=== PATIENT | male | born 1965 | race Caucasian/White ===

== ENCOUNTER 2018-10-31 14:40 | Emergency (ER) | payer OTHER ==
[~2018-10-31] VITALS: Ht 172.7 cm; Wt 99.8 kg
[2018-10-31 15:02] VITALS: BP 125/56
== END 2018-10-31 16:36 | disposition home or self-care (01) ==
LOC: ER 14:47
DX: N39.0 Urinary tract infection, site not specified (principal); J45.909 Unspecified asthma, uncomplicated; I10 Essential (primary) hypertension; Z88.0 Allergy status to penicillin; Z88.2 Allergy status to sulfonamides
CPT/HCPCS: 74176; 81002; 81025

== ENCOUNTER 2020-05-28 14:46 | Emergency (ER) | payer MEDICARE, MEDICAID ==
[~2020-05-28] VITALS: Ht 172.7 cm; Wt 72.6 kg
[2020-05-28 15:23] LABS: Basophils # (auto) 0.1 10 ^3/uL (0-0.2); Basophils % (auto) 1.2 % (0.0-2.0); Eosinophils # (auto) 0.2 10 ^3/uL (0-0.8); Eosinophils % (auto) 3.3 % (0.0-7.0); Hematocrit 37.1 % (41.0-53.0); Lymphocytes # (auto) 2.1 10 ^3/uL (0.4-5.4); Lymphocytes % (auto) 36.7 % (10.0-50.0); Mean Corpuscular Hemoglobin 27.3 pg (28.0-32.0); Mean Corpuscular Hgb Conc. 32.4 g/dL (32.0-36.0); Mean Corpuscular Volume 84.3 fL (80.0-100.0); Monocytes # (auto) 0.5 10 ^3/uL (0-1.3); Monocytes % (auto) 8.7 % (0.0-12.0); Neutrophils # (auto) 2.9 10 ^3/uL (1.6-8.6); Neutrophils % (auto) 50.1 % (37.0-80.0); Nucleated Red Blood Cells % 0.1 %; Platelet Count (auto) 200 10^3/uL (140-450); Red Cell Distribution Width 15.7 % (11.8-14.3); White Blood Cell 5.8 10^3/uL (4.4-10.8)
[2020-05-28 15:40] LABS: Albumin 3.9 g/dL (3.4-5.0); Anion Gap 7 (5-15); Blood Urea Nitrogen 17 mg/dL (7-18); Calcium 8.5 mg/dL (8.5-10.1); Carbon Dioxide 28 mmol/L (21-32); Chloride 105 mmol/L (98-107); GFR African American 101 mL/min; GFR Non-African American 83 mL/min; Glucose 68 mg/dL (74-106); Potassium 3.8 mmol/L (3.5-5.1); Sodium 140 mmol/L (136-145)
[2020-05-28 15:45] LABS: Alanine Aminotransferase 39 U/L (16-61); Alkaline Phosphatase 104 U/L (45-117); Aspartate Aminotransferase 30 U/L (15-37); Bilirubin, Total 0.6 mg/dL (0.2-1.0); Total Protein 7.6 g/dL (6.4-8.2)
[2020-05-28 16:26] VITALS: BP 122/80
== END 2020-05-28 16:26 | disposition home or self-care (01) ==
LOC: ER 14:46
DX: R42 Dizziness and giddiness (principal); I10 Essential (primary) hypertension; I25.2 Old myocardial infarction; Z88.0 Allergy status to penicillin; Z88.2 Allergy status to sulfonamides
CPT/HCPCS: 36415; 70450; 80053; 84484; 85025; 93005

== ENCOUNTER 2020-06-01 20:08 | Inpatient (IN) | payer MEDICARE, MEDICAID ==
[~2020-06-01] VITALS: Ht 172.7 cm; Wt 97.9 kg
[2020-06-01 22:40] LABS: Basophils # (auto) 0.1 10 ^3/uL (0-0.2); Basophils % (auto) 1.2 % (0.0-2.0); Eosinophils # (auto) 0.3 10 ^3/uL (0-0.8); Eosinophils % (auto) 5.7 % (0.0-7.0); Hematocrit 36.1 % (41.0-53.0); Hemoglobin 11.7 g/dL (13.5-17.5); Lymphocytes # (auto) 2.1 10 ^3/uL (0.4-5.4); Lymphocytes % (auto) 43.8 % (10.0-50.0); Mean Corpuscular Hemoglobin 27.2 pg (28.0-32.0); Mean Corpuscular Hgb Conc. 32.4 g/dL (32.0-36.0); Mean Corpuscular Volume 84.1 fL (80.0-100.0); Monocytes # (auto) 0.4 10 ^3/uL (0-1.3); Monocytes % (auto) 9.2 % (0.0-12.0); Neutrophils % (auto) 40.1 % (37.0-80.0); Nucleated Red Blood Cells % 0.1 %; Platelet Count (auto) 183 10^3/uL (140-450); Red Blood Cells 4.29 10^6/uL (4.5-5.90); Red Cell Distribution Width 15.6 % (11.8-14.3); White Blood Cell 4.9 10^3/uL (4.4-10.8)
[2020-06-01 22:56] LABS: Albumin 3.4 g/dL (3.4-5.0); Anion Gap 5 (5-15); Blood Urea Nitrogen 20 mg/dL (7-18); Calcium 8.2 mg/dL (8.5-10.1); Carbon Dioxide 29 mmol/L (21-32); Chloride 106 mmol/L (98-107); Glucose 85 mg/dL (74-106); Magnesium 2.2 mg/dL (1.6-2.6); Potassium 4.5 mmol/L (3.5-5.1); Sodium 140 mmol/L (136-145)
[2020-06-01 22:57] LABS: Urine Bacteria NONE SEEN /hpf (None Seen); Urine Blood Negative /uL (Negative); Urine Hyaline Cast FEW /lpf (0 - 2); Urine Specific Gravity 1.023 (1.001-1.035); Urine WBC 5 /hpf (0 - 3)
[2020-06-01 22:59] LABS: Alanine Aminotransferase 41 U/L (16-61); Alkaline Phosphatase 99 U/L (45-117); Aspartate Aminotransferase 29 U/L (15-37); BUN/Creatinine Ratio 17.2; Bilirubin, Total 0.5 mg/dL (0.2-1.0); GFR African American 85 mL/min; GFR Non-African American 70 mL/min
[2020-06-02] MEDS ORDERED: ONDANSETRON HCL 4 MG/2 ML VIAL IV ONE
[2020-06-02] MEDS ORDERED: MORPHINE SULF INJ 2 MG/ML SYRINGE 1ML IV ONE
[2020-06-02] MEDS ORDERED: NITROGLYCERIN 0.4 MG SL TAB SL PRN (01:00)
[2020-06-02] MEDS ORDERED: ACETAMINOPHEN 325 MG TAB PO PRN (01:00)
[2020-06-02] MEDS ORDERED: MORPHINE SULF INJ 2 MG/ML SYRINGE 1ML IV PRN (01:00)
[2020-06-02] MEDS ORDERED: ONDANSETRON HCL 4 MG/2 ML VIAL IV PRN (01:00)
[2020-06-02 01:43] LABS: Cholesterol 135 mg/dL (< 200); HDL Cholesterol 64 mg/dL (40-59); LDL Cholesterol 57 mg/dL (< 100); Triglycerides 53 mg/dL (< 150)
[2020-06-02] MEDS ORDERED: TAMS0.4C36 PO (02:14)
[2020-06-02] MEDS ORDERED: LOS25T PO (02:14)
[2020-06-02] MEDS ORDERED: CYCL-611 PO (02:14)
[2020-06-02] MEDS ORDERED: DOCU100T23 PO (02:14)
[2020-06-02] MEDS ORDERED: ASPI-498 OR (02:14)
[2020-06-02] MEDS ORDERED: CLOP75TA70 PO (02:14)
[2020-06-02] MEDS ORDERED: ZOLP10TA6 PO (02:14)
[2020-06-02] MEDS ORDERED: DEXL60CA4 PO (02:14)
[2020-06-02] MEDS: TEMAZEPAM 15 MG CAP PO PRN ×2 (02:39→22:14)
[2020-06-02] MEDS: HYDROcodone-ACET 5/325MG TAB PO PRN ×2 (08:01→11:59)
[2020-06-02 09:40] VITALS: BP 125/64
[2020-06-02 10:13] VITALS: BP 132/88
[2020-06-02] MEDS ORDERED: PERCOT PO (10:44)
[2020-06-02] MEDS ORDERED: MORP30TA PO (10:44)
[2020-06-02] MEDS: FAMOTIDINE 20 MG TAB PO SCH ×2 (11:36→21:44)
[2020-06-02] MEDS: CLOPIDOGREL BISULFATE 75 MG TAB PO SCH (11:36)
[2020-06-02] MEDS: LOSARTAN POTASSIUM 50 MG TAB PO SCH (11:37)
[2020-06-02] MEDS: ASPirin 81 mg TAB PO SCH (11:37)
[2020-06-02 12:12] VITALS: BP 121/97
[2020-06-02 15:09] LABS: Amphetamine Screen, Urine NEGATIVE (NEGATIVE); Barbiturate Scree,Urine NEGATIVE (NEGATIVE); Benzodiazephine Screen, Urine NEGATIVE (NEGATIVE); Cannabinoid Screen, Urine NEGATIVE (NEGATIVE); Cocaine Screen, Urine NEGATIVE (NEGATIVE); Opiate Scree,Urine POSITIVE (NEGATIVE); Phencyclidine Screen, Urine NEGATIVE (NEGATIVE)
[2020-06-02] MEDS: OXYCODONE W/ ACETAMINOPHEN 5/325MG TABLET PO PRN (16:50)
[2020-06-02 17:08] VITALS: BP 107/62
[2020-06-02] MEDS: TAMSULOSIN HYDROCHLORIDE 0.4 MG CAP PO SCH (17:47)
[2020-06-02 20:00] VITALS: BP 123/73
[2020-06-02 21:30] VITALS: BP 123/73
[2020-06-02] MEDS: MORPHINE SULF 30 mg ER tab PO SCH (21:43)
[2020-06-02] MEDS: ATORVASTATIN 20 MG TAB PO SCH (21:43)
[2020-06-03] MEDS: OXYCODONE W/ ACETAMINOPHEN 5/325MG TABLET PO PRN ×3 (01:19→20:40)
[2020-06-03 05:35] VITALS: BP_SYST 125; BP_SYST 93; BP_DIAS 55; BP_DIAS 80
[2020-06-03 06:01] LABS: Basophils # (auto) 0.1 10 ^3/uL (0-0.2); Basophils % (auto) 1.1 % (0.0-2.0); Eosinophils # (auto) 0.2 10 ^3/uL (0-0.8); Eosinophils % (auto) 4.6 % (0.0-7.0); Hematocrit 33.9 % (41.0-53.0); Hemoglobin 11.3 g/dL (13.5-17.5); Lymphocytes # (auto) 2.1 10 ^3/uL (0.4-5.4); Lymphocytes % (auto) 41.9 % (10.0-50.0); Mean Corpuscular Hemoglobin 27.8 pg (28.0-32.0); Mean Corpuscular Hgb Conc. 33.3 g/dL (32.0-36.0); Mean Corpuscular Volume 83.5 fL (80.0-100.0); Monocytes # (auto) 0.5 10 ^3/uL (0-1.3); Monocytes % (auto) 10.2 % (0.0-12.0); Neutrophils # (auto) 2.1 10 ^3/uL (1.6-8.6); Neutrophils % (auto) 42.2 % (37.0-80.0); Nucleated Red Blood Cells % 0.1 %; Platelet Count (auto) 167 10^3/uL (140-450); Red Blood Cells 4.06 10^6/uL (4.5-5.90); White Blood Cell 4.9 10^3/uL (4.4-10.8)
[2020-06-03 06:15] LABS: Calcium 8.8 mg/dL (8.5-10.1); Potassium 3.6 mmol/L (3.5-5.1)
[2020-06-03 09:00] VITALS: BP 126/86
[2020-06-03] MEDS: CLOPIDOGREL BISULFATE 75 MG TAB PO SCH ×2 (09:21→18:24)
[2020-06-03] MEDS: MORPHINE SULF 30 mg ER tab PO SCH ×2 (10:03→21:57)
[2020-06-03] MEDS: FAMOTIDINE 20 MG TAB PO SCH ×2 (10:03→21:57)
[2020-06-03] MEDS: ASPirin 81 mg TAB PO SCH (10:03)
[2020-06-03] MEDS: LOSARTAN POTASSIUM 50 MG TAB PO SCH (10:04)
[2020-06-03 11:25] LABS: INR 1.03 (0.9-1.15)
[2020-06-03 12:57] VITALS: BP 118/76
[2020-06-03 16:51] VITALS: BP 107/73
[2020-06-03] MEDS: TAMSULOSIN HYDROCHLORIDE 0.4 MG CAP PO SCH (17:13)
[2020-06-03 20:00] VITALS: BP 119/70
[2020-06-03] MEDS ORDERED: LORazepam 2MG/ML-1ML VIAL IV PRN (20:30)
[2020-06-03] MEDS: ATORVASTATIN 20 MG TAB PO SCH (21:57)
[2020-06-03 22:00] VITALS: BP 119/70
[2020-06-03] MEDS: TEMAZEPAM 15 MG CAP PO PRN (22:06)
[2020-06-04] MEDS: OXYCODONE W/ ACETAMINOPHEN 5/325MG TABLET PO PRN ×2 (04:46→20:47)
[2020-06-04 05:00] VITALS: BP 103/60
[2020-06-04 08:00] VITALS: BP 113/70
[2020-06-04 08:43] VITALS: BP 113/70
[2020-06-04] MEDS: LOSARTAN POTASSIUM 50 MG TAB PO SCH (10:00)
[2020-06-04] MEDS: FAMOTIDINE 20 MG TAB PO SCH ×2 (10:00→22:22)
[2020-06-04] MEDS: ASPirin 81 mg TAB PO SCH (10:00)
[2020-06-04] MEDS ORDERED: VANCOMYCIN 1GM/250ML 250 ML IV ONE (13:41)
[2020-06-04] MEDS ORDERED: VANCOMYCIN HCL 1000 MG VL ONE (13:48)
[2020-06-04] MEDS ORDERED: fentaNYL CITRATE 100 MCG/2 ML VL ONE ×3 (13:48→16:13)
[2020-06-04] MEDS ORDERED: MIDAZOLAM HCL 1MG/1ML-2 ML VIAL ONE ×3 (13:48→16:13)
[2020-06-04] MEDS ORDERED: LIDOCAINE 2%HCL (LOCAL ANESTH.) INJ 20ML MDV ONE ×2 (13:49→16:14)
[2020-06-04] MEDS ORDERED: HYDROmorphone HCL 2 MG/ML VL ONE (14:22)
[2020-06-04] MEDS ORDERED: ANGIOMAX 250 MG VIAL IV ONE (16:13)
[2020-06-04] MEDS ORDERED: SODIUM CHL 0.9% 50 ML ONE (16:14)
[2020-06-04] MEDS ORDERED: IOHEXOL 350 MG/ML 100ML IJ ONE (16:14)
[2020-06-04 16:20] VITALS: BP 141/86
[2020-06-04] MEDS: MORPHINE SULF 30 mg ER tab PO SCH ×2 (17:06→22:22)
[2020-06-04] MEDS: TAMSULOSIN HYDROCHLORIDE 0.4 MG CAP PO SCH (18:11)
[2020-06-04 20:00] VITALS: BP 123/78
[2020-06-04 22:00] VITALS: BP 123/78
[2020-06-04] MEDS: ATORVASTATIN 20 MG TAB PO SCH (22:20)
[2020-06-04] MEDS: VANCOMYCIN 1GM/250ML 250 ML IV SCH (22:21)
[2020-06-04] MEDS: TEMAZEPAM 15 MG CAP PO PRN (22:38)
[2020-06-05] MEDS: OXYCODONE W/ ACETAMINOPHEN 5/325MG TABLET PO PRN ×2 (04:20→11:25)
[2020-06-05 05:00] VITALS: BP 119/69
[2020-06-05] MEDS: MORPHINE SULF 30 mg ER tab PO SCH (08:12)
[2020-06-05] MEDS: VANCOMYCIN 1GM/250ML 250 ML IV SCH (08:12)
[2020-06-05] MEDS: FAMOTIDINE 20 MG TAB PO SCH (08:13)
[2020-06-05 08:58] VITALS: BP 106/65
[2020-06-05] MEDS: LOSARTAN POTASSIUM 50 MG TAB PO SCH (11:03)
[2020-06-05 12:37] VITALS: BP 114/74
[2020-06-05 16:34] VITALS: BP 121/81
[2020-06-05] MEDS: TAMSULOSIN HYDROCHLORIDE 0.4 MG CAP PO SCH (18:34)
== END 2020-06-05 17:30 | disposition home health service (06) | DRG 244 ==
LOC: EDBD 20:08 → EDUNIT# 20:08 → ER 20:12 → TELE 06-02 00:47 → TELE-CENTR 06-02 09:05
PROVIDERS: ADMIT Nurse Practitioner; ATTEND Family Medicine
PROC: 0JH606Z Insertion of Pacemaker, Dual Chamber into Chest Subcutaneous Tissue and Fascia, Open Approach (ICD-10-PCS; principal; 2020-06-04)
PROC: 02H63JZ Insertion of Pacemaker Lead into Right Atrium, Percutaneous Approach (ICD-10-PCS; 2020-06-04)
PROC: 02HK3JZ Insertion of Pacemaker Lead into Right Ventricle, Percutaneous Approach (ICD-10-PCS; 2020-06-04)
DX: I49.5 Sick sinus syndrome (principal); I10 Essential (primary) hypertension; E66.9 Obesity, unspecified; I25.10 Atherosclerotic heart disease of native coronary artery without angina pectoris; Z20.822 Contact with and (suspected) exposure to COVID-19; F17.200 Nicotine dependence, unspecified, uncomplicated; I25.2 Old myocardial infarction; Z86.73 Personal history of transient ischemic attack (TIA), and cerebral infarction without residual deficits; Z82.0 Family history of epilepsy and other diseases of the nervous system; Z82.3 Family history of stroke; Z87.442 Personal history of urinary calculi; Z98.84 Bariatric surgery status; Z95.5 Presence of coronary angioplasty implant and graft; Z88.0 Allergy status to penicillin; Z88.2 Allergy status to sulfonamides; Z68.25 Body mass index [BMI] 25.0-25.9, adult
CPT/HCPCS: 33208; 36415; 70450; 70551; 71045; 78452; 80048; 80053; 80061; 80307; 81001; 83735; 83880; 84443; 84484; 85025; 85610; 86850; 86900; 86901; 87426; 93005; 93017; 93306; 93886; 96374; 96375; 97163; 99152; 99153; C1785; G0378; J2250; J2405

== ENCOUNTER 2021-02-01 16:36 | Emergency (ER) | payer MEDICARE, MEDICAID ==
[~2021-02-01] VITALS: Ht 172.7 cm; Wt 77.1 kg
[~2021-02-01 16:36] MED LIST: ASPI-498 OR; CLOP75TA70 PO; CYCL-611 PO; DEXL60CA4 PO; DOCU100T23 PO; LOS25T PO; MORP30TA PO; PERCOT PO; TAMS0.4C36 PO; ZOLP10TA6 PO
[2021-02-01 22:39] LABS: Basophils # (auto) 0 10 ^3/uL (0-0.2); Eosinophils # (auto) 0.1 10 ^3/uL (0-0.8); Hemoglobin 10.6 g/dL (13.5-17.5); Lymphocytes # (auto) 1.7 10 ^3/uL (0.4-5.4); Monocytes # (auto) 0.4 10 ^3/uL (0-1.3); Neutrophils # (auto) 2.6 10 ^3/uL (1.6-8.6); White Blood Cell 4.9 10^3/uL (4.4-10.8)
[2021-02-01 22:41] LABS: Basophils % (auto) 0.7 % (0.0-2.0); Eosinophils % (auto) 2.7 % (0.0-7.0); Hematocrit 33.5 % (41.0-53.0); Mean Corpuscular Hemoglobin 24.4 pg (28.0-32.0); Mean Corpuscular Hgb Conc. 31.6 g/dL (32.0-36.0); Mean Corpuscular Volume 77.4 fL (80.0-100.0); Monocytes % (auto) 8.9 % (0.0-12.0); Neutrophils % (auto) 53.7 % (37.0-80.0); Red Blood Cells 4.33 10^6/uL (4.5-5.90); Red Cell Distribution Width 19.1 % (11.8-14.3)
[2021-02-01 22:53] LABS: Albumin 3.5 g/dL (3.4-5.0); Calcium 8.5 mg/dL (8.5-10.1); Potassium 4.2 mmol/L (3.5-5.1)
[2021-02-01 22:58] LABS: BUN/Creatinine Ratio 25.9; Bilirubin, Total 0.6 mg/dL (0.2-1.0); Total Protein 6.7 g/dL (6.4-8.2)
[2021-02-01 23:12] LABS: Urine Bacteria NONE SEEN /hpf (None Seen); Urine Blood 1+ /uL (Negative); Urine Mucus MODERATE (None Seen); Urine Specific Gravity 1.036 (1.001-1.035); Urine WBC 3 /hpf (0 - 3)
[2021-02-02 03:08] VITALS: BP 129/72
== END 2021-02-02 03:11 | disposition home or self-care (01) ==
LOC: ER 16:36
DX: R10.12 Left upper quadrant pain (principal); I25.10 Atherosclerotic heart disease of native coronary artery without angina pectoris; I10 Essential (primary) hypertension; I25.2 Old myocardial infarction; Z86.73 Personal history of transient ischemic attack (TIA), and cerebral infarction without residual deficits; Z87.442 Personal history of urinary calculi; Z95.0 Presence of cardiac pacemaker; Z90.49 Acquired absence of other specified parts of digestive tract; Z79.899 Other long term (current) drug therapy; Z79.82 Long term (current) use of aspirin; Z88.0 Allergy status to penicillin; Z88.2 Allergy status to sulfonamides
CPT/HCPCS: 36415; 74176; 80053; 81001; 82150; 83690; 85025; 93005